=== PATIENT | male | born 1995 | race Caucasian/White ===

== ENCOUNTER 2018-02-15 22:15 | Emergency (ER) | payer SELFPAY ==
[~2018-02-15] VITALS: Ht 172.7 cm; Wt 83.9 kg
--- NOTE | 2018-02-15 22:15 | NUR ---
BIB RA HERE FOR "BEEN OFF OF PSYCH MEDS FOR [facility] AND NOW HAS NEGATIVE THOUGHTS". PT DENIES SI/HI/MEDICAL C/O AT THIS TIME. STATES "I HAVE BEEN WALKING A LOT AT [facility] FROM ONE PLACE TO ANOTHER FOR FINANCIAL HELP AND HATED IT. I AM HERE FOR FINANCIAL INSTABILITY"
[2018-02-15 22:19] VITALS: BP 128/74
--- NOTE | 2018-02-15 23:05 | NUR ---
PT SCREAMING "I NEED FINANCIAL HELP AND THE GOVERNMENT IS RESPONSIBLE FOR FINANCIAL RESPONSIBILITIES".
--- NOTE | 2018-02-15 23:09 | NUR ---
AAO X4; REFUSES TO WALK TO RESTROOM FOR URINE SAMPLE AND PREFERS I&O CATHETER DONE. WHEN IT WAS INSERTED WITH URINE STARTING TO FLOW, PT STARTS RAISING HIS VOICE STATING "TAKE IT OUT, I WANNA LEAVE NOW". I&O CATH REMOVED. PT DENIES SI. AND WALKS OUT OF ER. NOTIFIED.
[2018-02-15 23:10] LABS: BASOPHILS % (AUTO) 0.3 % (0.0-2.0); EOSINOPHILS % (AUTO) 1.7 % (0.0-6.0); HEMATOCRIT 42 % (39-51); HEMOGLOBIN 13.8 g/dL (13.5-17.5); LYMPHOCYTES # (AUTO) 2.4 /CMM (0.8-4.8); LYMPHOCYTES % (AUTO) 23.8 % (20.0-44.0); MEAN CORPUSCULAR HGB CONC 33 g/dl (31.0-36.0); MEAN CORPUSCULAR VOLUME 90 fL (80-96); MONOCYTES # (AUTO) 0.8 /CMM (0.1-1.30); MONOCYTES % (AUTO) 7.7 % (2.0-12.0); NEUTROPHILS # (AUTO) 6.6 /CMM (1.8-8.9); NEUTROPHILS % (AUTO) 66.5 % (43.0-81.0); PLATELET COUNT (AUTO) 295 /CMM (150-450); RDW COEFFICIENT OF VARIATION 13.2 (11.5-15.0); RED BLOOD CELL COUNT(AUTO) 4.69 MIL/uL (4.5-6.0); WHITE BLOOD COUNT (AUTO) 9.9 K/uL (4.3-11.0)
[2018-02-15 23:11] LABS: CALCIUM, SERUM 9.1 mg/dL (8.5-10.1); CARBON DIOXIDE 26 mmol/L (21-32); CHLORIDE 103 mmol/L (98-107); CREATININE 0.9 mg/dL (0.6-1.3); GLUCOSE 90 mg/dL (74-106); POTASSIUM 3.8 mmol/L (3.5-5.1); SODIUM SERUM 139 mmol/L (136-145); UREA NITROGEN, BLOOD 12 mg/dL (7-18)
[2018-02-15 23:19] LABS: ACETAMINOPHEN 0 ug/ml (10-30); ALANINE AMINOTRANSFERASE 38 U/L (12-78); ALBUMIN 3.7 g/dL (3.4-5.0); ALKALINE PHOSPHATASE 88 U/L (46-116); ASPARTATE AMINOTRANSFERASE 28 U/L (15-37); BILIRUBIN,DIRECT 0.1 mg/dL (0.0-0.2); BILIRUBIN,TOTAL 0.3 mg/dL (0.2-1.0); SALICYLATE 1.5 mg/dL (2.8-20.0); TOTAL PROTEIN, SERUM 7.3 g/dL (6.4-8.2)
[2018-02-15 23:20] LABS: ALCOHOL, BLOOD < 3 mg/dL (0-0)
[2018-02-15 23:49] LABS: APPEARANCE,URINE SL CLOUDY (CLEAR); BILIRUBIN,URINE NEGATIVE (NEGATIVE); BLOOD, URINE NEGATIVE Ery/uL (NEGATIVE); COLOR,URINE YELLOW (YELLOW); KETONES,URINE NEGATIVE (NEGATIVE); LEUKOCYTE ESTERASE ,URINE NEGATIVE (NEGATIVE); NITRITE, URINE NEGATIVE (NEGATIVE); PROTEIN,URINE NEGATIVE (NEGATIVE); UGLUCOSE NEGATIVE (NEGATIVE); UROBILINOGEN,URINE 0.2 EU/dL (0.2)
== END 2018-02-15 23:13 | disposition left against medical advice (07) ==
LOC: ER 22:22
DX: F25.9 Schizoaffective disorder, unspecified (principal)
CPT/HCPCS: 36415; 80048; 80076; 80305; 80329; 81001; 85025; 99284; A4606; G0480 ×2; Z7610; 81000-TC